=== PATIENT | female | born 1960 | race Caucasian/White ===

== ENCOUNTER 2024-02-21 02:13 | Day surgery (SDC) | payer MEDICARE, SELFPAY ==
[2024-02-03 14:42] VITALS: BMI 22.8
[2024-02-21 09:06] VITALS: BP 109/70; PULSE 95; RESP 20; TEMP 36.4; O2SAT 99; BMI 20.9
[2024-02-21] MEDS: LACTATED RINGERS 1,000 ML 150 ML IV CONT (09:16)
--- NOTE | 2024-02-21 09:42 | WPDANESEPPF ---
Anes - Initial Pre Proc Eval Procedure: Operation Date: 02/21/24 10:30 Proposed Procedures p Esophagogastroduodenoscopy & Colonoscopy - Walker Abrams MD Date/Time: 02/21/24 09:42 Surgeon: Walker Abrams MD Pre Op Diagnosis: IBS, Personal hx. colon polyps, LUQ Pain Patient Data Age: 64 Gender: F Height: 1.73 m Weight: 62.5 kg Last Vital Signs Temp 97.6 F 02/21/24 09:06 Pulse 95 02/21/24 09:06 Resp 20 02/21/24 09:06 BP 109/70 02/21/24 09:06 Pulse Ox 99 02/21/24 09:06 O2 Del Method Room Air 02/21/24 09:06 Allergies Allergy/AdvReac Type Severity Reaction Status Date / Time poison kvng extract Allergy Intermediate Rash Verified 02/21/24 09:05 cat dander Allergy Unknown Verified 02/21/24 09:05 dog dander Allergy Unknown Verified 02/21/24 09:05 Home Medications Medication Instructions Recorded Confirmed Type calcium 600 mg (as 1 tablet PO DAILY 02/03/24 02/21/24 History carbonate)-vitamin D3 20 mcg (800 unit) tablet (Caltrate with Vitamin D3) Patient hx anesthesia problems: none Family hx anesthesia problems: none Results Review: All pre-operative results and documents have been reviewed as part of the pre-operative evaluation. [facility] Past Medical History Medical History Allergies Depression Diverticulosis Encounter for breast augmentation Enteritis Gastric ulcer GERD (gastroesophageal reflux disease) HSV-2 infection IBS (irritable bowel syndrome) Marijuana smoker nightly Multiple gastric ulcers TIA (transient ischemic attack) finding on CT Tonsil and adenoid disease, chronic Uterus prolapse Vaginal anomaly Weight loss Surgical History Surgical History Basal cell carcinoma 2018 H/O endoscopy History of colostomy History of partial hysterectomy Prolapse of bladder Uterus prolapse Vaginal prolapse Family History Family History Mother Family history of liver disease Alcoholism Heart disease Father Alcoholism Depression Anxiety Diabetes mellitus Heart disease Cancer Grandparent Breast cancer Diabetes mellitus Heart disease Alzheimer disease Parkinson disease Social History Social History Social History: Caffeine-Decaf tea 12/24/23 Patient is very confident in filling out forms. Patient has not rcvd assistance in the past 12 months. Smoking status: Never smoker Second hand tobacco smoke exposure: No Alcohol intake: current Drinks per week: 2 Alcohol use details: 1-2 per week Substance use: current Substance use type: marijuana Other substance usage details: daily/nightly Do You Feel Safe in your Home?: Yes Lack of Transportation: No Lack of Food: Never True Current Housing: I Have Housing Concerned About Future Housing: No Difficulty Paying Gas/Electric Bills: No Difficulty Paying for Meds: No Currently Unemployed: No Education: High School Diploma/GED Difficulty w/ Childcare or Family Care: No Living arrangements: alone Occupation/Education: occupation 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 [employer] Gender identity (if verbalized by the patient): Female Spiritual care concerns: No Agree to blood products: Yes Anes - Eval Final PreProcedure Day of Procedure 02/21/24 09:42 Patient weight: normal Heart: regular rate and rhythm Lungs: clear to auscultation Airway: Mallampati scale class II Neurological: alert and oriented Last oral intake: >/= 8 hours ASA classification: II Emergent: no Anesthetic plan: proceed Anesthesia type and monitoring: general GIVS and standard monitoring Results Review: All pre-operative results and documents have been reviewed as part of the pre-operative evaluation. Informed Consent: The patient's anesthetic plan and its attendant risks and benefits were discussed with the patient/family/POA. Questions were solicited and answers provided to the satisfaction of the patient/family/POA.
--- NOTE | 2024-02-21 10:06 | PM.HPGS ---
History of Present Illness History of Present Illness Consent: Risks, benefits, and alternatives have been discussed and questions answered. Patient agrees to proceed with procedure. Chief complaint: IBS, Personal hx. colon polyps, LUQ Pain Narrative: Desi Reis is a 64 year old female with ibs, intermittent abdominal pain, 2019 had egd and colonoscopy- diverticulosis and small gastric ulcers, bx negative for h pylori. Previous h/o colon polyp. Review of Systems Review of Systems: All systems reviewed & are unremarkable except as noted in HPI and below PMFSH Past Medical History Medical History Allergies Depression Diverticulosis Encounter for breast augmentation Enteritis Gastric ulcer GERD (gastroesophageal reflux disease) HSV-2 infection IBS (irritable bowel syndrome) Marijuana smoker nightly Multiple gastric ulcers TIA (transient ischemic attack) finding on CT Tonsil and adenoid disease, chronic Uterus prolapse Vaginal anomaly Weight loss Surgical History Surgical History Basal cell carcinoma 2018 H/O endoscopy History of colostomy History of partial hysterectomy Prolapse of bladder Uterus prolapse Vaginal prolapse Family History Family History Mother Family history of liver disease Alcoholism Heart disease Father Alcoholism Depression Anxiety Diabetes mellitus Heart disease Cancer Grandparent Breast cancer Diabetes mellitus Heart disease Alzheimer disease Parkinson disease Social History Social History Social History: Caffeine-Decaf tea 12/24/23 Patient is very confident in filling out forms. Patient has not rcvd assistance in the past 12 months. Smoking status: Never smoker Second hand tobacco smoke exposure: No Alcohol intake: current Drinks per week: 2 Alcohol use details: 1-2 per week Substance use: current Substance use type: marijuana Other substance usage details: daily/nightly Do You Feel Safe in your Home?: Yes Lack of Transportation: No Lack of Food: Never True Current Housing: I Have Housing Concerned About Future Housing: No Difficulty Paying Gas/Electric Bills: No Difficulty Paying for Meds: No Currently Unemployed: No Education: High School Diploma/GED Difficulty w/ Childcare or Family Care: No Living arrangements: alone Occupation/Education: occupation 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 [employer] Gender identity (if verbalized by the patient): Female Spiritual care concerns: No Agree to blood products: Yes Meds Home Medications and Allergies Home Medications Medication Instructions Recorded Confirmed Type calcium 600 mg (as 1 tablet PO DAILY 02/03/24 02/21/24 History carbonate)-vitamin D3 20 mcg (800 unit) tablet (Caltrate with Vitamin D3) Allergies Allergy/AdvReac Type Severity Reaction Status Date / Time poison kvng extract Allergy Intermediate Rash Verified 02/21/24 09:05 cat dander Allergy Unknown Verified 02/21/24 09:05 dog dander Allergy Unknown Verified 02/21/24 09:05 Vital Signs Vital Signs - 24 hr 02/21/24 09:06 Temperature 97.6 F Pulse Rate 95 Respiratory Rate 20 Blood Pressure 109/70 Pulse Oximetry 99 Oxygen Delivery Room Air Exam Const: General: comfortable and no acute distress HENMT: Face/Nose/Sinus: Normal nares present Eyes: General: appearance normal, both eyes and all related structures Neck: Neck: no JVD Resp: Auscultation: clear to auscultation bilaterally Cardio: Rate: regular rate Rhythm: regular rhythm GI: Inspection: non-distended GI Palp: Yes Soft to palpation Skin: General skin exam: normal color Neuro: General: gait normal Speech: normal speech Extrem: General: normal to inspection Psych: Mental Status: mental status grossly normal Assessment and Plan Assessment and plan (1) LUQ pain: Code(s): R10.12 - Left upper quadrant pain Status: Acute Assessment and Plan: colonoscopy (2) Personal history of colonic polyps: Code(s): Z86.010 - Personal history of colon polyps Status: Acute (3) Gastric ulcer: Qualifiers: Gastric ulcer chronicity: acute Gastric ulcer complication status: without hemorrhage or perforation Qualified Code(s): K25.3 - Acute gastric ulcer without hemorrhage or perforation Code(s): K25.9 - Gastric ulcer, unspecified as acute or chronic, without hemorrhage or perforation Status: Acute Assessment and Plan: egd
--- NOTE | 2024-02-21 10:22 | SUR.OPER ---
EGD start 1014 end 1016, Colonoscopy start 1021
[2024-02-21 10:39] VITALS: BP 100/86; PULSE 90; RESP 16; O2SAT 100
[2024-02-21 10:49] VITALS: BP 95/65; PULSE 84; RESP 20; O2SAT 100
[2024-02-21 10:55] VITALS: BP 110/47; PULSE 79; RESP 22; O2SAT 100
== END 2024-02-21 11:07 | disposition home or self-care (01) ==
PROVIDERS: PCP Nurse Practitioner Family; Referring Provider Nurse Practitioner Family; Visit Provider Internal Medicine Gastroenterology
PROC: 0DJ08ZZ Inspection of Upper Intestinal Tract, Via Natural or Artificial Opening Endoscopic (ICD-10-PCS; CPT 43235; principal; 2024-02-21 10:30)
DX: K58.9 Irritable bowel syndrome, unspecified (principal); F32.A Depression, unspecified; K21.9 Gastro-esophageal reflux disease without esophagitis; Z98.890 Other specified postprocedural states; Z90.49 Acquired absence of other specified parts of digestive tract; Z85.828 Personal history of other malignant neoplasm of skin; Z87.11 Personal history of peptic ulcer disease; Z86.0100 Personal history of colon polyps, unspecified; Z87.42 Personal history of other diseases of the female genital tract; Z86.73 Personal history of transient ischemic attack (TIA), and cerebral infarction without residual deficits; Z80.3 Family history of malignant neoplasm of breast; Z82.49 Family history of ischemic heart disease and other diseases of the circulatory system
CPT/HCPCS: 43239; 45378; 88305; J2003; J2704; J7120

== ENCOUNTER 2024-05-26 10:00 | Outpatient (CLI) | payer MEDICARE, SELFPAY ==
--- NOTE | ~2024-05-26 | DEXA_ITS ---
Bone Density Report Name: REINA STUART Age: 64 Sex: Female Ethnicity: White Date of : 1960 Indication: postmenopausal; screening for osteoporosis; parental hip fracture; hysterectomy; Referring Provider: SARKIS MEJIA Study: Bone densitometry was performed. Exam Date: May 26, 2024 Accession number: [id number] Bone Density: Region BMD T-score Z-score Classification AP Spine(L1-L4) 0.851 -1.8 0.0 Osteopenia Femoral Neck (Left) 0.589 -2.3 -0.8 Osteopenia Total Hip (Left) 0.706 -1.9 -0.7 Osteopenia Femoral Neck (Right) 0.633 -1.9 -0.4 Osteopenia Total Hip (Right) 0.783 -1.3 -0.1 Osteopenia Total Hip Mean 0.745 -1.6 -0.4 Osteopenia World Health Organization criteria for BMD impression classify patients as: Normal (T-score at or above -1.0), Osteopenia (T-score between -1.0 and -2.5), or Osteoporosis (T-score at or below -2.5). 10-year Fracture Risk(1): Major Osteoporotic Fracture 20% Hip Fracture 3.8% Reported Risk Factors: [place] (), Neck BMD=0.589, BMI=21.3, parental fracture, smoking (1) FRAX(R) Version 3.08. Fracture probability calculated for an untreated patient. Fracture probability may be lower if the patient has received treatment. Clinical Information Provided by Patient: Parent has had a hip fracture Smokes Has used the following medications: Vitamin D, Calcium Has the following medical conditions: Hysterectomy Patient maximum height was 68.5 Menopause Age: 49 No regular weight bearing exercise Does not regularly consume dairy products Drinks caffeinated beverages Onset of menses at age 12 Number of children 1 Impression: The patient has low bone mass, based on the Left Femoral Neck T-score. The patient has an estimated ten-year risk of hip fracture of 3.8% and an estimated ten-year risk of major fracture of 20%, based on the WHO FRAX algorithm. The patient has risk factors, including: parental hip fracture, smoking. Discussion: BONE DENSITY IS LOW AT ONE OR MORE SKELETAL SITES. THE PATIENT'S BMD AND CLINICAL RISK FACTORS CONTRIBUTE TO THIS PATIENT'S HIGH RISK OF FRACTURE. This patient's lowest T-score is low at one or more skeletal sites. It meets the World Health Organization's (WHO) criteria for ?low bone mass? (T-score between -1.0 and -2.5). The patient's 10-year risk of hip fracture and 10 year risk of a major osteoporotic fracture as calculated by FRAX exceeds the threshold where pharmacological therapy is recommended by the National Osteoporosis Foundation (NOF). However, all treatment decisions require clinical judgment and consideration of individual patient factors, including patient preferences, comorbidities, previous drug use, risk factors not captured in the FRAX model (e.g., frailty, falls, vitamin D deficiency, increased bone turnover, interval significant decline in bone density) and possible under or overestimation of fracture risk by FRAX. The patient should follow a healthful lifestyle (good nutrition with adequate calcium and vitamin D, and appropriate weight-bearing exercise). Follow-Up: Consider a repeat BMD and Vertebral Fracture Assessment (VFA) exam in 2 years or sooner if medically necessary, to reassess this patient's status. Reported by: TOMAS on 05/26/2024 10:28:00 AM. Reviewed, dictated and finalized at location [facility]
== END 2024-05-26 10:01 | disposition home or self-care (01) ==
LOC: ANHIMG 10:02
PROVIDERS: PCP Nurse Practitioner Family; Visit Provider Nurse Practitioner Family
DX: M85.89 Other specified disorders of bone density and structure, multiple sites (principal); N95.8 Other specified menopausal and perimenopausal disorders
CPT/HCPCS: 77080

== ENCOUNTER 2024-09-19 08:08 | Outpatient (CLI) | payer MEDICARE, SELFPAY ==
--- NOTE | ~2024-09-19 | CT_ITS ---
EXAMINATION: CT sinus wo con DATE: 09/19/2024 08:32 INDICATION: Pressure of the eustachian tubes. TECHNIQUE: Computed tomography (CT) of the paranasal sinuses was performed without intravenous contra st. The dose-length product was 332.63 mGy-cm. Automated exposure control and iterative reconstructio n technique were employed. COMPARISON: None FINDINGS: There is no significant mucosal thickening. No air-fluid levels. No mucoperiosteal reaction . Leftward nasal septal deviation. Ostiomeatal units are patent. Mastoids are pneumatized. IMPRESSION: 1. No significant sinus disease. Reviewed, dictated and finalized at location A.
--- OUTSIDE RECORDS SUMMARY | 2024-09-19 08:11 | XMS_ITS | Clinical Summary ---
Author Organization [facility] Address [address] [place] [address] Care Team Providers Care Senior Resident Care Director Name Role Phone Rigoberto Pierre MD Primary Care Provider [phone] Source Comments [facility],non-owned Affiliates and Associated Physician Practices is amultiple site organization consisting of ambulatory clinics and hospital sitesin [place], [place], [place] and [place]. This disclosure is being madepursuant to the Care Everywhere program and may not contain all information available regarding this patient. Last updated 18.[facility] Allergies No known active allergies Medications * Be aware that medications may not be up to date on this document. Alwaysverify current medications with the patient. ibuprofen (MOTRIN) 600 MG tablet Take 1 Tab by mouth every 6 hours as needed for Pain. 30 0 10/06/2009 Active multivitamin daily (THERAGRAN) tablet Take 1 Tab by mouth daily with food. Active calcium-vitamin D (OS-CONOR 500 + D) 500-200 MG-UNIT tablet Take 1 Tab by mouth daily. Active oxycodone-acetam inophen (PERCOCET) 5-325 MG tablet Take 1-2 Tabs by mouth every 6 hours as needed for Pain. 30 Tab 0 06/07/2010 Active docusate sodium (COLACE) 100 MG capsule Take 1 Cap by mouth 2 times daily. 60 Cap 3 06/07/2010 Active Active Problems No known active problems Resolved Problems Problem Noted Date Diagnosed Date Resolved Date Mixed incontinence 10/06/2009 0 Overview (10/06/2009): MIXED INCONTINENCE Preoperative examination 10/05/2009 Family History Medical History Relation Name Comments Cancer Maternal Grandmother Diabetes Other Relation Name Status Comments Maternal Grandmother Other Social History Tobacco Use Types Packs/Day Years Used Date Smoking Tobacco: Former Cigarettes Alcohol Use Standard Drinks/Week Comments Yes 0 (1 standard drink = 0.6 oz pur e alcohol) OCCASIONAL Comments No Sex and Gender Information Value Date Recorded Sex Assigned at Not on file Legal Sex Female 8:45 AM TRADING ANALYST Gender Identity Not on file Sexual Orientation Not on file Last Filed Vital Signs Vital Sign Reading Time Taken Comments Blood Pressure 116/79 06/07/2010 4:05 PM TRADING ANALYST Pulse 74 06/07/2010 4:05 PM TRADING ANALYST Temperature 36.2 C (97.1 F) 06/07/2010 12:15 PM TRADING ANALYST Respiratory Rate 16 06/07/2010 4:05 PM TRADING ANALYST Oxygen Saturation 99% 06/07/2010 4:05 PM TRADING ANALYST Inhaled Oxygen Concentration - - Weight 70.8 kg (156 lb) 06/07/2010 7:00 AM TRADING ANALYST Height 172.7 cm (5' 8 ) 06/07/2010 7:00 AM TRADING ANALYST Body Mass Index 23.72 06/07/2010 7:00 AM TRADING ANALYST Plan of Treatment Health Maintenance Due Date Last Done Comments BONE DENSITY TESTING 1960 COLOGUARD (AGES 45-75) - COL ON CA SCREENING 1960 COLON MONITORING 1960 COLONOSCOPY - COLON CA SCREENING 1959 CT COLONOGRAPHY - COLON CA SCREENING 1960 Colorectal Cancer Screening 1960 FIT - COLON CA SCREENING 1960 FLEX SIG - COLON CA SCREENING 1960 LIPID TESTING 1960 MAMMOGRAM 1960 MEDICARE AWV 12 MONTHS 1960 HIV SCREENING 1974 HEPATITIS C SCREENING 01/05/1977 DTAP/TDAP/TD VACCINES (1 - Tdap) 1978 PNEUMOCOCCAL VACCINE 50+ (1 of 1 - PCV) 2009 ZOSTER VACCINE (1 of 2) 2009 PAP SMEAR 08/23/2012 08/23/2009 COVID-19 VACCINE (2023-2 5 season) 2024 DEPRESSION SCREENING 05/13/2024 INFLUENZA VACCINE (Season Ended) 2025 Respiratory Syncytial Virus (RSV) Vaccine Pt: or over 60 yrs (1 - 1-dose 75+ series) 2034 HEPATITIS B VACCINE Aged Out No longe r eligible based on patient's age to complete this topic HIB VACCINE Aged Out No longer eligi ble based on patient's age to complete this topic HPV VACCINE Aged Out No longer eligi ble based on patient's age to complete this topic MENINGOCOCCAL (Group B) VACC INE SHARED DECISION-MAKING Aged Out No longer eligibl e based on patient's age to complete this topic MENINGOCOCCAL GROUPS A/C/Y/W VACCINE Aged Out No longer eligible b ased on patient's age to complete this topic Procedures Procedure Name Priority Date/Time Associated Diagnosis Comments PAP THINPREP Routine 08/23/2009 from Last 3 Months or Most Recently Relevant to Health Maintenance Results * PAP THINPREP (08/23/2009) Cervical swab (specimen) PART OF UTERINE CERVIX / Unknown 08/23/2009 Narrative [facility] - 09/13/2009 4:48 PM CDT Preferred Lab:->OTHER EXTERNAL LAB Rigoberto Iqbal MD LAB - PATHOLOGY/CYTOLOGY ORDERA BLES Final Result Performing Organization Address [facility]/State/[facility] Co de Phone Number [facility] [address] from Last 3 Months or Most Recently Relevant to Health Maintenance Insurance [facility] [employer] MEDICARE MEDICARE SUPPLEMENT PAYOR GENERIC SELF PAY NO INSURANCE Member Subscriber Plan / Payer (Ef fective for All Dates) Name:Desi Stuart Member ID:Not on file Relation to Subscriber:Not on file Name:DESI STUART Subscriber ID:Not on file (Home) Address: [address] [place] [address] [place] [address] Payer ID:Not on file Group ID:Not on file Type:Self Pay Address: [place], [place] Advance Directives * Full Code (Latest Code Status on File) Date Activated Date Inactivated Comments 10/05/2009 2:43 PM 10/07/2009 2:03 AM Care Teams Senior Resident Care Director Relationship Specialty Start Date End Date Rigoberto Pierre MD [address] [place] [id number] PCP - General 06/03/19
--- OUTSIDE RECORDS SUMMARY | 2024-09-19 08:11 | XMS_ITS | Clinical Summary ---
Author Organization [facility] Address [address] [place] [address] Care Team Providers Care Spare Hand Carding Name Role Phone Samantha Mejia AUTOMOTIVE MANUFACTURER Primary Care Provider Allergies Active Allergy Reactions Criticality Noted Date Comments Poison Zunilda Extract Rash Low 03/19/2013 Medications omeprazole (PRILOSEC) 20 MG capsule Take 1 capsule (20 mg total) by mouth daily. 03/03/2024 Active calcium carb-cholecalci ferol (CALTRATE+D) 600-10 MG-MCG Tab tablet 1 tablet. 5x/week Active Active Problems Problem Noted Date Diagnosed Date Heart palpitations 03/20/2024 Assessment & Plan (03/20/2024 3:01 PM INSTRUCTIONAL TECHNOLOGY TEACHER): She is having minimal symptoms of palpitations, no monitor needed at this time and no pharmacologic therapy needed at this time. Mitral valve prolapse 03/20/2024 Assessment & Plan (03/20/2024 3:01 PM INSTRUCTIONAL TECHNOLOGY TEACHER): Will repeat echo to assess mitral valve prolapse. Raynaud's disease without gangrene 03/20/2024 Assessment & Plan (03/20/2024 3:02 PM INSTRUCTIONAL TECHNOLOGY TEACHER): She showed me pictures of her hands and feet with discoloration secondary to temperature changes. I suspect that she has Raynaud's disease. No medication at this time. Rabies exposure 12/24/2018 Encounters Date Type Department Care Team Description 09/02/2024 7:40 AM CDT - 09/02/2024 11:59 PM CDT Hospital Encounter [facility] Ultrasound [address] [place] [address] Samantha Mejia, FER Discharge Disposition: Home or Self Care (Routine Discharge) 09/02/2024 Travel from Last 3 Months Immunizations Immunization Administration Dates Next Due Fluzone 6 Months+ Quad (0.5 mL Prefilled Syringe) 01/19/2020 Influenza (Afluria - Preserv ative Free) 02/10/2019 Influenza Adult (Generic) 12/23/2018,03/16/2018 Rabies (Rabavert) 01/05/2019, 9,12/25/2018,2018 Family History Medical History Relation Comments Alcohol Abuse Father Cancer Father Prostate Depression Father Manic depressive disorder Drug Abuse Father Mental Health Father Breast Cancer Maternal Grandmother 60'S Cancer Maternal Grandmother Breast Heart Attack Maternal Grandmother Heart Disease Maternal Grandmother Diabetes Maternal Uncle Alcohol Abuse Mother Heart Disease Mother Relation Status Comments Father Maternal Grandmother Maternal Uncle Mother Social History Tobacco Use Types Packs/Day Years Used Date Smoking Tobacco: Former Cigarettes Q uit: 05/13/1980 Smokeless Tobacco: Never Tobacco Cessation:Counseling Given: Not Answered Alcohol Use Standard Drinks/Week Comments Yes 2.7 (1 standard drink = 0.6 oz p ure alcohol) A beer or kole AUDIT-C Answer Date Recorded Frequency of Alcohol Consumption 2-3 times a wee k 01/15/2020 Average Number of Drinks Not on file 020 Frequency of Binge Drinking Not on file 08/2019 Comments No Sex and Gender Information Value Date Recorded Sex Assigned at Not on file Legal Sex Female 8:24 PM CDT Gender Identity Not on file Sexual Orientation Not on file Last Filed Vital Signs Vital Sign Reading Time Taken Comments Blood Pressure 100/60 03/20/2024 1:41 PM INSTRUCTIONAL TECHNOLOGY TEACHER Pulse 97 03/20/2024 1:41 PM INSTRUCTIONAL TECHNOLOGY TEACHER Temperature 36.7 C (98 F) 12/31/2018 11:18 AM CDT Respiratory Rate 18 12/31/2018 1:11 PM CDT Oxygen Saturation 98% 03/20/2024 1:41 PM INSTRUCTIONAL TECHNOLOGY TEACHER Inhaled Oxygen Concentration - - Weight 63.5 kg (140 lb) 03/20/2024 1:41 PM INSTRUCTIONAL TECHNOLOGY TEACHER Height 172.7 cm (5' 8 ) 03/20/2024 1:41 PM INSTRUCTIONAL TECHNOLOGY TEACHER Body Mass Index 21.29 03/20/2024 1:41 PM INSTRUCTIONAL TECHNOLOGY TEACHER Plan of Treatment Upcoming Encounters Date Type Department Care Team (Late st Contact Info) Description 03/26/2025 10:00 AM INSTRUCTIONAL TECHNOLOGY TEACHER [facility] [address] [place] [address] Sofi Martínez PA [address] [facility], [address] [place] [address] Health Maintenance Due Date Last Done Comments Colorectal Cancer Screening Colonoscopy (10 Years) 1959 Hepatitis C 1977 DTaP, Tdap and Td Vaccines ( 1 - Tdap) 1978 Pneumococcal Vaccine: 50+ Years (1 of 2 - PCV) 1978 Zoster Vaccines (1 of 2) 2009 RSV Immunization or 60+ Years (1 - Risk 60-74 years 1-dose series) 2019 Dexa Scan (General) 01/11/2024 COVID-19 Vaccine (1 - 2023-2 5 season) 2024 PHQ-2 (Physician [place]) 05/13/2024 Mammogram Screening 07/24/2025 07/25/2023, 04/21/2021 Meningococcal B Vaccine Aged Out No l onger eligible based on patient's age to complete this topic Meningococcal Vaccine Aged Out No bigg desi eligible based on patient's age to complete this topic RSV Immunizations Under 20 Months Aged Out No longer eligible b ased on patient's age to complete this topic Procedures Procedure Name Priority Date/Time Associated Diagnosis Comments US SOFT TISS HEAD OR NECK Routine 09/02/2024 8:39 AM CDT Localized swelling, mass and lump, neck MG SCREENING IMPLANT W KEND[place] MINNIE DIGI Routine 07/25/2023 9:28 AM CDT Screening mammogram, encounter for from Last 3 Months or Most Recently Relevant to Health Maintenance Results * US SOFT TISS HEAD OR NECK (09/02/2024 8:39 AM CDT) Anatomical Region Laterality Modality Head, Neck Ultrasound 09/02/2024 8:46 AM CDT Impressions 09/02/2024 8:48 AM CDT IMPRESSION: Normal morphology lymph nodes at the areas of swelling of the left neck. No suspicious findings. Ordered By: SAMANTHA MEJIA Interpreted By: Main Gardner MD, 09/02/2024 8:46 AM Narrative 09/02/2024 8:48 AM CDT [facility] [address] [place] [address] US SOFT TISS HEAD OR NECK INDICATION: LOCALIZED SWELLING, MASS AND LUMP, NECK TECHNIQUE: Limited grayscale and color Doppler ultrasound performed of the area of concern left neck region. COMPARISON: None FINDINGS: In the area of swelling left neck region, normal morphology cervical chain lymph nodes are identified. For reference measuring 6 mm adjacent to the parotid gland. Normal reniform shape and echogenic fatty hilum is present. A second lymph node in the left submandibular region measures 5 mm short axis also with normal reniform shape and echogenic fatty hilum. A third lymph node is seen measuring up to 3 mm short axis with suggestion of fatty hilum as seen on image 24. No suspicious lymphadenopathy or solid mass identified. Procedure Note Main Gardner MD - 09/02/2024 [facility] [address] [place] [address] US SOFT TISS HEAD OR NECK INDICATION: LOCALIZED SWELLING, MASS AND LUMP, NECK TECHNIQUE: Limited grayscale and color Doppler ultrasound performed of thearea of concern left neck region. COMPARISON: None FINDINGS: In the area of swelling left neck region, normal morphology cervical chainlymph nodes are identified. For reference measuring 6 mm adjacent to theparotid gland. Normal reniform shape and echogenic fatty hilum is present.A second lymph node in the left submandibular region measures 5 mm shortaxis also with normal reniform shape and echogenic fatty hilum. A thirdlymph node is seen measuring up to 3 mm short axis with suggestion offatty hilum as seen on image 24. No suspicious lymphadenopathy or solidmass identified. IMPRESSION: Normal morphology lymph nodes at the areas of swelling of the left neck.No suspicious findings. Ordered By: SAMANTHA MEJIA Interpreted By: Main Gardner MD, 09/02/2024 8:46 AM Samantha Mejia AUTOMOTIVE MANUFACTURER ULTRASOUND Final Resul t * MG SCREENING IMPLANT W [place] MINNIE DIGI (07/25/2023 9:28 AM CDT) Anatomical Region Laterality Modality Breast Bilateral Mammography 07/25/2023 2:40 PM CDT Narrative 07/25/2023 2:44 PM CDT EXAMINATION: Digital bilateral screening mammogram with 3-D tomosynthesis EXAM DATE/TIME: 07/25/2023 8:33 AM REASON FOR EXAM: Screening Mammogram Maternal grandmother with breast carcinoma in her 70s. COMPARISON: 07/16/2017.. 04/21/2021 Technique: Digital screening mammography of both breasts was performed in addition to 3-D Tomosynthesis technique. This study was read with the assistance of a computer-aided detection system. Tissue density: There are scattered areas of fibroglandular density. Findings: Bilateral breast prostheses are intact. Stable slightly irregular shape to the right breast prosthesis. There is no new focal asymmetry, dominant mass lesion, area of skin thickening, or cluster of suspicious appearing calcifications in either breast to suggest malignancy. ===== IMPRESSION: ===== 1. Stable mammographic appearance with no new findings to suggest malignancy in either breast. Assessment: ACR BI-RADS 2 - BENIGN FINDING(S) Recommendation: 1:Routine Screening Bilateral Comments: Ordered By: SAMANTHA MEJIA Interpreted By: Braden Bhandari, 07/25/2023 2:40 PM Samantha Mejia AUTOMOTIVE MANUFACTURER MAMMO Final Resul t from Last 3 Months or Most Recently Relevant to Health Maintenance Insurance MEDICARE GENERIC - COMMERCIAL Advance Directives Documents on File Type Date Recorded Patient Restrooms Or Lounges Maid Expl anation Legal Documents 12/25/2018 Advance Directives and Living Will 08/06/2013 12:00 AM ADVANCED DIRECTIVES Advance Directives and Living Will 10/23/2012 12:00 AM ADVANCED DIRECTIVES Care Teams Spare Hand Carding Relationship Specialty Start Date End Date Samantha Mejia FNP [address] [facility] [address] [place] [address] PCP - General Nurse Practitioner Family 12/23/23
--- OUTSIDE RECORDS SUMMARY | 2024-09-19 08:11 | XMS_ITS | Encounter Summary ---
Author Organization [facility] Address [address] [facility] [place] [address] Care Team Providers Care Services Rep Name Role Phone Rigoberto Pierre MD Primary Care Provider [phone] Encounter Details Date Type Department Care Team (Late st Contact Info) Description 08/23/2021 Lab Requisition [facility] [address] [facility] [place] [address] Matias Ortega MD [address] [place] [address] Social History Tobacco Use Types Packs/Day Years Used Date Smoking Tobacco: Former Cigarettes Alcohol Use Standard Drinks/Week Comments Yes 0 (1 standard drink = 0.6 oz pur e alcohol) OCCASIONAL Comments No Sex and Gender Information Value Date Recorded Sex Assigned at Not on file Legal Sex Female 8:45 AM BREAKER UNIT ASSEMBLER Gender Identity Not on file Sexual Orientation Not on file documented as of this encounter Plan of Treatment Not on file documented as of this encounter Procedures Procedure Name Priority Date/Time Associated Diagnosis Comments DERMATOPATHOLOGY Routine 08/22/2021 12:0 0 AM CDT documented in this encounter Results * DERMATOPATHOLOGY (08/22/2021 12:00 AM CDT) Case Report Dermatopathology Report Case: [id number] Authorizing Provider: Matias Ortega MD Collected: 08/22/2021 12:00 AM Ordering Location: [facility] Received: 08/23/2021 04:48 PM Pathologist: Linnea Duarte MD Specimen: Skin, right chest 3:25 PM [facility] D[facility] Final Diagnosis Specimen A. SKIN, right chest: SQUAMOUS PROLIFERATION (D48.5) (see microscopic description and comment) 2 3:25 PM T DERMATOPATHOLOGY LABORATORY Clinical History ISK vs. AK vs. BCCA vs. SCCA Path# [id number] 2 3:25 PM T DERMATOPATHOLOGY LABORATORY Gross Description Specimen A: Received is one formalin filled container labeled with the patient's name and designated right chest. The specimen consists of a shave biopsy measuring [id number]. Jar 0. 3:25 PM [facility] DERMATOPATHOLOGY [facility]ORAT[facility] Microscopic Description Specimen A. SKIN, right chest: Crush artifact and tissue fragmentation are present. Sections show maturational disarray and nuclear pleomorphism of keratinocytes extending throughout the full thickness of the specimen. There is focal parakeratosis. This lesion is present at the margin of the specimen. The lesion is inflamed. Additional deeper sections were obtained and reviewed. COMMENT: The histological differential diagnosis includes an irritated and inflamed benign keratosis, an actinic keratosis, and less likely squamous cell carcinoma. 2 3:25 PM [facility] D[facility]OR[facility] Disclaimer An external and internal positive and negative controls are appropriate for the histochemical, immunohistochemical and immunofluorescence stain(s) in this case (if any), except where stated explicitly. The performance characteristics of the stain(s) cited in this report were developed and its performance characteristic determined by the Dermatopathology Laboratory at [facility], directed by Dr. Tennille Fitzgerald. These tests need not be, and therefore are not, approved by the [place] Food and Drug Administration. The tests are used for clinical purposes. Billing Codes Specimen Charges Stain Charges 78506 1 2 3:25 PM CDT DERMATOPATHOLOGY LABORATORY Embedded Images 2 3:25 PM T DERMATOPATHOLOGY LABORATORY Pathology/Cytolog y TISSUE SPECIMEN FROM SKIN / Unknown 08/22/2021 08/23/2021 4:48 PM CDT us Matias Ortega MD LAB - PATHOLOGY/CYTOLOGY ORDER KING Final Result DERMATOPATHOLOGY LABORATORY [facility] - Department of Dermatology [facility] Specialized Medicine [address] [place] [address], [address] [phone] documented in this encounter Visit Diagnoses Not on filedocumented in this encounter Care Teams Services Rep Relationship Specialty Start Date End Date Rigoberto Pierre MD [address] [place] [address] PCP - General 06/03/19 documented as of this encounter
--- OUTSIDE RECORDS SUMMARY | 2024-09-19 08:11 | XMS_ITS | Encounter Summary ---
Author Organization [facility] Address [facility] [place] [address] Care Team Providers Care Special Needs Tutor Name Role Phone Rigoberto Pierre MD Primary Care Provider [phone] Natalia Lowry DO Primary Care Provider [phone] Samantha Ramirez Primary Care Provider [phone] Encounter Details Date Type Department Care Team (Late Contact Info) Description 12/24/2018 Therapy Plan [facility] Day [facility] [address] [place] [address] Russell Heredia MD [address] [place] [address] Social History Tobacco Use Types Packs/Day Years Used Date Smoking Tobacco: Former Cigarettes Q uit: 12/20/1974 Smokeless Tobacco: Never Alcohol Use Standard Drinks/Week Comments Yes 0 (1 standard drink = 0.6 oz pur e alcohol) 3-4 times a week Comments No Sex and Gender Information Value Date Recorded Sex Assigned at Not on file Legal Sex Female 8:24 PM CDT Gender Identity Not on file Sexual Orientation Not on file documented as of this encounter Plan of Treatment Upcoming Encounters Date Type Department Care Team (Late Contact Info) Description 03/26/2025 10:00 AM CONTRACT SPECIALIST [facility] [address] [place] [phone] Sofi Martínez PA [address] [place] [address], [address] [place] [address] documented as of this encounter Visit Diagnoses Not on filedocumented in this encounter Care Teams Special Needs Tutor Relationship Specialty Start Date End Date Rigoberto Pierre MD [address] [place] [address] PCP - General FAMILY PRACTICE 12/20/18 03/21/21 Natalia Lowry DO [address] [place] [address] PCP - General FAMILY PRACTICE 03/22/21 12/22/23 Samantha Ramirez FNP [address] [place] [address] PCP - General Nurse Practitioner Family 12/23/23 documented as of this encounter
--- OUTSIDE RECORDS SUMMARY | 2024-09-19 08:11 | XMS_ITS | Encounter Summary ---
Author Organization [facility] Address [facility] [place] [address] Care Team Providers Care Grants Director Name Role Phone Rigoberto Pierre MD Primary Care Provider [phone] Natalia Lowry DO Primary Care Provider [phone] Samantha Ramirez Primary Care Provider [phone] Encounter Details Date Type Department Care Team (Late Contact Info) Description 12/25/2018 Hospital Orders Only [facility] Day [facility] [address] [place] [address] Jammie Greco MD Social History Tobacco Use Types Packs/Day Years [...] st Contact Info) Description 03/26/2025 10:00 AM RAIL WASHER Office Visit [facility] [address] [place] [address] Sofi Martínez PA [address] [facility], [address] [place] [address] documented as of this encounter Visit Diagnoses Not on filedocumented in this encounter Care Teams Grants Director Relationship Specialty Start Date End Date Rgioberto Pierre MD [address] [place] [address] PCP - General FAMILY PRACTICE 12/20/18 03/21/21 Natalia Lowry DO [address] [place] [address] PCP - General FAMILY PRACTICE 03/22/21 12/22/23 Samantha Ramirez, FER [address] [place] [address] PCP - General Nurse Practitioner Family 12/23/23 documented as of this encounter
--- OUTSIDE RECORDS SUMMARY | 2024-09-19 08:11 | XMS_ITS | Encounter Summary ---
Author Organization [facility] Address [address] [place] [address] Care Team Providers Care Tinware Lithograph Press Operator Name Role Phone Samantha Ramirez SUPERVISOR PRE WAVE Primary Care Provider [phone] Encounter Details Date Type Department Care Team (Late st Contact Info) Description 02/27/2024 Abstract [facility], [place] [address] [place] [address] Blanca Lozoya MA Social History Tobacco Use Types Packs/Day Years Used Date Smoking Tobacco: Former Cigarettes Q uit: 1975 Smokeless Tobacco: Never Alcohol Use Standard Drinks/Week Comments Not Currently 0 (1 standard drink = 0.6 oz pur e alcohol) AUDIT-C Answer Date Recorded Frequency of Alcohol [...] st Contact Info) Description 03/26/2025 10:00 AM HOUSING COUNSELOR Office Visit [facility] [address] [place] [address] Sofi Martínez PA [address] [facility], [address] [place] [address] documented as of this encounter Procedures Procedure Name Priority Date/Time Associated Diagnosis Comments CBC (OUTSIDE LAB) Routine 12/31/2023 BASIC METABOLIC PANEL Routine 12/31/2023 LIPID PANEL Routine 12/31/2023 VITAMIN D, 25 OH Routine 12/31/2023 documented in this encounter Results * VITAMIN D, 25 OH (12/31/2023) VITAMIN D 25 HYDROXY S/P/B 29 12/31/2023 us Default History Genericprovider LABORATORY Final Result * LIPID PANEL (12/31/2023) CHOLESTEROL 208 HDL 55 TRIGLYCERIDES 150 NON HDL CHOLESTEROL 153 LDL (CALCULATED) 127 12/31/2023 Default History Genericprovider LABORATORY Edited Result - Final * BASIC METABOLIC PANEL (12/31/2023) SODIUM S/P/B 141 POTASSIUM S/P/B 4.0 CO2 26 CHLORIDE S/P/B 105 GLUCOSE 105 mg/dL CALCIUM S/P/B 9.8 BUN 8 CREATININE S/P/B 0.71 0.5 - 1.0 GFR ESTIMATE 95 12/31/2023 us Default History Genericprovider LABORATORY Final Result * CBC (OUTSIDE LAB) (12/31/2023) WBC 5.3 HGB 15.2 HCT 45.8 PLT 243 12/31/2023 Default History Genericprovider LAB-OUTSIDE/ABST RACTED Final Result documented in this encounter Visit Diagnoses Not on filedocumented in this encounter Care Teams Tinware Lithograph Press Operator Relationship Specialty Start Date End Date Samantha Ramirez FNP [facility] [place] [address] PCP - General Nurse Practitioner Family 12/23/23 documented as of this encounter
== END 2024-09-19 08:09 | disposition home or self-care (01) ==
PROVIDERS: PCP Nurse Practitioner Family; Visit Provider Otolaryngology
DX: J32.2 Chronic ethmoidal sinusitis (principal); K21.9 Gastro-esophageal reflux disease without esophagitis
CPT/HCPCS: 70486

== ENCOUNTER 2024-12-17 16:29 | Emergency (ER) | payer MEDICARE, SELFPAY ==
--- NOTE | 2024-12-17 16:31 | ED.URI ---
HPI - URI/Sore Throat General Chief Complaint: Upper Respiratory Infection Stated Complaint: Sore Throat Time Seen by Provider: 12/17/24 16:31 Source: patient Mode of arrival: ambulatory Limitations: no limitations History of Present Illness HPI Narrative: Patient is a 64-year-old female presents with sore throat and itchy ears for 3 days. Patient was exposed to strep at work. Denies any fever, chills, nausea, vomiting, diarrhea. Patient has not taken anything for symptoms other than her daily Claritin Related Data Home Medications ?Medication ?Instructions ?Recorded ?Confirmed ?Last Taken ?Type calcium 600 mg (as 1 tablet PO DAILY 02/03/24 11/20/24 02/19/24 History carbonate)-vitamin D3 20 mcg (800 unit) tablet (Caltrate with Vitamin D3) multivitamin 1 tablet PO DAILY 09/16/24 11/20/24 Unknown History loratadine .ROUTE 12/17/24 Unknown History Allergies Allergy/AdvReac Type Severity Reaction Status Date / Time poison kvng extract Allergy Intermediate Rash Verified 12/17/24 16:58 cat dander Allergy Unknown Verified 12/17/24 16:58 dog dander Allergy Unknown Verified 12/17/24 16:58 Review of Systems Review of Systems: All systems reviewed & are unremarkable except as noted in HPI and below Constitutional: Constitutional: Denies chills, Denies fatigue, Denies fever(s), Denies headache(s), Denies malaise and Denies weakness Eyes: Eyes: Denies blurry vision, Denies itchy eyes and Denies loss of vision ENT: Reports otalgia (itching), Denies headache(s), Denies sinus pain and Reports sore throat Cardiovascular: Cardiovascular: Denies chest pain, Denies irregular heart rhythm and Denies dyspnea Respiratory: Respiratory: Denies cough and Denies dyspnea Gastrointestinal: Gastrointestinal: Denies abdominal pain, Denies diarrhea, Denies nausea and Denies vomiting Musculoskeletal: Musculoskeletal: Denies back pain, Denies myalgias and Denies arthralgias Integumentary/Breasts: Skin/Breast: Denies pruritus and Denies rash Neurologic: Denies headache(s), Denies loss of vision and Denies weakness Psychiatric: Psychiatric: Reports no additional psychiatric complaints Endocrine: Endocrine: Denies fatigue Allergic/Immunologic: Allergic/Immunologic: Denies itchy eyes PMFSH Past Medical History Medical History Allergies Diverticulosis IBS (irritable bowel syndrome) Multiple gastric ulcers HSV-2 infection GERD (gastroesophageal reflux disease) Gastric ulcer Marijuana smoker nightly TIA (transient ischemic attack) finding on CT Depression Weight loss Enteritis Vaginal anomaly Uterus prolapse Encounter for breast augmentation Tonsil and adenoid disease, chronic Surgical History Surgical History Vaginal prolapse Uterus prolapse Prolapse of bladder History of colostomy H/O endoscopy Basal cell carcinoma 2018 History of partial hysterectomy Family History Family History Mother Family history of liver disease Alcoholism Heart disease Father Alcoholism Depression Anxiety Diabetes mellitus Heart disease Cancer Grandparent Breast cancer Diabetes mellitus Heart disease Alzheimer disease Parkinson disease Social History Social History Social History: Caffeine-Decaf tea 11/16/24 very confident with medical forms Smoking status: Never smoker Second hand tobacco smoke exposure: No Alcohol intake: current Drinks per week: 2 Alcohol use details: 1-2 per week Substance use: current Substance use type: marijuana Other substance usage details: daily/nightly Do You Feel Safe in your Home?: Yes Lack of Transportation: No Lack of Food: Never True Current Housing: I Have Housing Concerned About Future Housing: No Difficulty Paying Gas/Electric Bills: No Difficulty Paying for Meds: No Currently Unemployed: No Education: Decline to Answer Difficulty w/ Childcare or Family Care: No Living arrangements: alone Occupation/Education: occupation 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 There is no relevant family history pertinent to the presenting complaint. Exam Const: General: cooperative, healthy appearing, comfortable, no acute distress and well nourished Nutritional Appearance: well nourished Orientation/consciousness: patient oriented x3 Limitations: no limitations HENMT: Head: normal to inspection, normocephalic and atraumatic Ears: hearing grossly normal bilaterally, external ears normal, TM's normal bilaterally, EAC's normal and no periauricular adenopathy Face/Nose/Sinus: Normal external nose present, Abnormal mucous membranes and turbinates present erythematous bilateral and diffuse, normal facial exam, sinuses nontender and face symmetric Face and sinus: normal facial exam, sinuses nontender and face symmetric Mouth: Yes Normal oral and palatal mucosa present, Yes lip normal, Yes tongue normal, Yes Normal salivary glands and ducts present, Yes oropharynx normal and Yes moist mucous membranes Teeth and gingiva: dentition normal Throat: posterior oropharynx normal, tonsils normal, uvula midline and postnasal drainage Eyes: General: appearance normal, both eyes and all related structures Alignment and Position: alignment normal and position normal Periorbital: periorbital findings normal Eyelids: eyelids normal Pupils: Equal, round and reactive pupils present Neck: Neck: normal visual inspection, full ROM, no lymphadenopathy and supple Chest: Chest palpation & inspection: normal inspection of the chest and normal palpation of entire chest wall Resp: Effort & Inspection: normal respiratory effort and able to speak in complete sentences Auscultation: clear to auscultation bilaterally, no crackles, no rales, no rhonchi and no wheezes Cardio: Rate: regular rate Rhythm: regular rhythm Heart sounds: S1 normal heart sound present and S2 normal heart sound present GI: Inspection: normal to inspection Skin: General skin exam: normal color and no rashes or lesions noted Neuro: General: patient oriented x3 and moves all extremities Cranial nerves: Yes Equal, round and reactive pupils present Speech: normal speech Gait exam (Neuro): Normal gait present Extrem: General: normal to inspection, full ROM and no edema Psych: Appearance: grossly normal and well kempt Mental Status: mental status grossly normal Speech and movement: Normal speech and movement present Affect: normal affect Attitude: cooperative Thought process: Normal thought process present Course Course Emergency Course: Discharge instructions reviewed with patient, as well as provided in writing per nursing staff. The instructions also include specific and strict return/GO TO THE ER as well as f/u information. All questions have been answered, and the patient deny any further questions with discharge and discharge plan. Portions of this record may have been created with voice recognition software Level of Care: Express Care Visit Vital Signs Vital signs: Vital Signs Temperature 36.7 C 12/17/24 16:43 Pulse Rate 88 12/17/24 16:43 Respiratory Rate 16 12/17/24 16:43 Blood Pressure 124/69 12/17/24 16:43 Pulse Oximetry 99 12/17/24 16:43 Oxygen Delivery Room Air 12/17/24 16:43 Temperature 36.7 C 12/17/24 16:43 Pulse Rate 88 12/17/24 16:43 Respiratory Rate 16 12/17/24 16:43 Blood Pressure 124/69 12/17/24 16:43 Pulse Oximetry 99 12/17/24 16:43 Oxygen Delivery Room Air 12/17/24 16:43 Reviewed MDM - URI/Sore Throat MDM Narrative Medical decision making narrative: Pt well hydrated appearing, in no respiratory distress, hemodynamically stable. Recommend supportive care. The patient is stable at time of discharge the clinical impression was discussed and the patient was given the opportunity to ask questions, which were addressed as completely as possible given the information available at present. Anticipatory guidance and return to care precautions were discussed and the importance of primary care follow-up was stressed and encouraged. The patient voiced understanding of the plan, indications to return, and the need for follow-up. Exam findings show no acute concerns or changes Patient is appropriate for outpatient treatment and follow-up. Differential diagnosis considered: Best virus, strep pharyngitis, allergic rhinitis, upper respiratory tract infection, sinusitis, rhinosinusitis, nasopharyngitis. viral pharyngitis, otitis media, otitis externa, otitis effusion, foreign body, cerumen impaction, viral syndrome, and influenza.? Medical Records Attestation: I reviewed the patient's medical records. Lab Data Attestation: I reviewed the patient's lab results. Labs: Lab Results 12/17/24 Range/Units 16:39 POC Grp A Strep Screen Negative (Negative) Discharge Plan Discharge Clinical Impression: Upper respiratory infection Qualifiers: URI type: acute nasopharyngitis (common cold) Qualified Code(s): J00 - Acute nasopharyngitis [common cold] Patient Disposition: Home Condition: Stable Instructions: Upper Respiratory Infection (ED) Additional Instructions: Your rapid strep swab was negative today at [facility]. A throat culture will be sent to the laboratory for further testing. If the test is positive, you will receive a phone call within 48 hours and an appropriate antibiotic will be initiated at that time. Your symptoms are likely due to a viral illness, which is not treated with antibiotics. Viral symptoms can be present for up to a few weeks. -For pain/fever, you may take: Tylenol 650-1000mg by mouth every 4-6 hours. Do not exceed 4000mg in 24 hours. Advil (Ibuprofen) 600 mg by mouth every 6 hours. Do not exceed 2400mg in 24 hours. 8 AM: Tylenol 11 AM: Ibuprofen 2 PM: Tylenol 5 PM: Ibuprofen 8 PM: Tylenol 11 PM: Ibuprofen 2 AM: Tylenol 5 AM: Ibuprofen -Antihistamine medication such as Benadryl/Zyrtec at night and Claritin/Massiel during the day can help improve symptoms. -Use Flonase twice a day for 5 days then daily to help reduce the inflammation and dry up your sinuses. -You can also use Sudafed behind the pharmacy counter(12 or 24 hour). Be sure to drink plenty of water with these medications at least 8 ounces with every dose and it is important to drink 8 to 10 glasses of water per day. Water is a natural decongestant -Eat and drink things that are easy to swallow, like tea or soup, or popsicles. -Oral rinses such as: Salt water gargles and/or may use topical anesthetic (eg. Chloraseptic spray) or lozenges to relieve dryness or throat pain). -Frequent hand washing or hand internal medicine nurse practitioner is one of the best ways to prevent spread of infection. -Using a vaporizer or humidifier at night will also help thin secretions and help with coughing up phlegm. Call your Primary Care Doctor and make a follow-up appointment in 3 days. If your cough worsens, you develop a fever greater than 103, you develop shaking chills, a fast heartbeat, trouble breathing and/or feel you are are breathing much faster than usual, call your Primary Care Doctor or go to the ER. Patient Language: Irish Prescriptions: No Action loratadine [Claritin] .ROUTE multivitamin Tablet 1 tablet PO DAILY calcium carbonate-vitamin D3 [Caltrate with Vitamin D3] 600 mg-20 mcg (800 unit) Tablet 1 tablet PO DAILY Follow-up/Referrals: Denise Bell DO [Primary Care Provider] - 3 Days Time of Disposition: 17:58
[2024-12-17 16:43] VITALS: BP 124/69; PULSE 88; RESP 16; TEMP 36.7; O2SAT 99
[2024-12-17 16:51] LABS: EDSTREPNEGPOS1 Negative (Negative)
== END 2024-12-17 18:13 | disposition home or self-care (01) ==
PROVIDERS: Emergency Provider Nurse Practitioner Family; PCP Family Medicine
DX: J00 Acute nasopharyngitis [common cold] (principal); F12.90 Cannabis use, unspecified, uncomplicated; K21.9 Gastro-esophageal reflux disease without esophagitis; Z86.73 Personal history of transient ischemic attack (TIA), and cerebral infarction without residual deficits; Z90.711 Acquired absence of uterus with remaining cervical stump; Z85.828 Personal history of other malignant neoplasm of skin
CPT/HCPCS: 87081; 87880; 99213; G0463

== ENCOUNTER 2025-01-29 07:20 | Outpatient (CLI) | payer MEDICARE, SELFPAY ==
--- OUTSIDE RECORDS SUMMARY | 2025-01-29 07:27 | XMS_ITS | Clinical Summary ---
Author Organization [facility] Address [address] [place] [address] Care Team Providers Care Lbd Teacher Name Role Phone Rigoberto Pierre MD Primary Care Provider [phone] Source Comments [facility],non-owned Affiliates and Associated Physician Practices is amultiple site organization consisting of ambulatory clinics and hospital sitesin [place], [place], [place] and [place]. This disclosure is being madepursuant to the Care Everywhere program and may not contain all information available regarding this patient. Last updated 18.[facility] Allergies No known active allergies Medications * [...] on file Legal Sex Female 8:45 AM ACCOUNT LIAISON Gender Identity Not on file Sexual Orientation Not on file Last Filed Vital Signs Vital Sign Reading Time Taken Comments Blood Pressure 116/79 06/07/2010 4:05 PM ACCOUNT LIAISON Pulse 74 06/07/2010 4:05 PM ACCOUNT LIAISON Temperature 36.2 C (97.1 F) 06/07/2010 12:15 PM ACCOUNT LIAISON Respiratory Rate 16 06/07/2010 4:05 PM ACCOUNT LIAISON Oxygen Saturation 99% 06/07/2010 4:05 PM ACCOUNT LIAISON Inhaled Oxygen Concentration - - Weight 70.8 kg (156 lb) 06/07/2010 7:00 AM ACCOUNT LIAISON Height 172.7 cm (5' 8) 06/07/2010 7:00 AM ACCOUNT LIAISON Body Mass Index 23.72 06/07/2010 7:00 AM ACCOUNT LIAISON Plan of Treatment Health Maintenance Due Date [...] MAMMOGRAM 1960 MEDICARE AWV 12 MONTHS 1959 HEPATITIS C SCREENING 01/05/1977 DTAP/TDAP/TD VACCINES (1 - Tdap) 1978 PNEUMOCOCCAL VACCINE 50+ (1 of 1 - PCV) 2009 ZOSTER VACCINE (1 of 2) 2009 DEPRESSION SCREENING 05/13/2024 COVID-19 VACCINE (2023-2 5 season) 2025 INFLUENZA VACCINE (#1) 2025 Respiratory Syncytial Virus (RSV) Vaccine Pt: [...] on patient's age to complete this topic Insurance [facility] [place] [address] MEDICARE MEDICARE SUPPLEMENT PAYOR GENERIC SELF PAY NO INSURANCE Member Subscriber Plan / Payer (Ef fective for All Dates) Name:Desi Stuart Josefina Member ID:Not on file Relation to Subscriber:Not on file Name:NARCISODESI Josefina Subscriber ID:Not on file (Home) Address: [address] [place] [address] Payer ID:Not on file Group ID:Not on file Type:Self Pay Address: [place], [place] Advance Directives * Full Code (Latest Code Status on File) Date Activated Date Inactivated Comments 10/05/2009 2:43 PM 10/07/2009 2:03 AM Care Teams Lbd Teacher Relationship Specialty Start Date End Date Rigoberto Pierre MD [address] [place] [id number] PCP - General 06/03/19
--- OUTSIDE RECORDS SUMMARY | 2025-01-29 07:27 | XMS_ITS | Encounter Summary ---
Author Organization [facility] Address [address] [place] [address] Care Team Providers Care Veneer Splicer Name Role Phone Rigoberto Pierre MD Primary Care Provider [phone] Encounter Details Date Type Department Care Team (Late st Contact Info) Description 08/23/[address] [facility] [address] [place] [id number] Matias Ortega MD [address] [place] [address] Social History Tobacco Use Types Packs/Day Years Used Date Smoking Tobacco: Former Cigarettes Alcohol Use Standard Drinks/Week Comments Yes 0 (1 standard drink = 0.6 oz pur e alcohol) OCCASIONAL Comments No Sex and Gender Information Value Date Recorded Sex Assigned at Not on file Legal Sex Female 8:45 AM APPLICATION CONSULTANT Gender Identity Not on file Sexual Orientation Not on file documented as of this encounter Plan of Treatment Not on file documented as of this encounter Procedures Procedure Name Priority Date/Time Associated Diagnosis Comments DERMATOPATHOLOGY Routine 08/22/2021 12:0 0 AM CDT documented in this encounter Results * DERMATOPATHOLOGY (08/22/2021 12:00 AM CDT) Case Report Dermatopathology Report Case: [id number] Authorizing Provider: Matias Ortega MD Collected: 08/22/2021 12:00 AM Ordering Location: [facility] Lab Received: 08/23/2021 04:48 PM Pathologist: Linnea Duarte MD Specimen: Skin, right chest 2 3:25 PM CDT DERMATOPATHOLOGY LABORATORY Final Diagnosis Specimen A. SKIN, right chest: SQUAMOUS PROLIFERATION (D48.5) (see microscopic description and comment) 2 3:25 PM CDT DERMATOPATHOLOGY LABORATORY at 1525 CDT Clinical History ISK vs. AK vs. BCCA vs. SCCA Path# [id number] 2 3:25 PM CDT DERMATOPATHOLOGY LABORATORY Gross Description Specimen A: Received is one formalin filled container labeled with the patient's name and designated right chest. The specimen consists of a shave biopsy measuring [id number]. Jar 0. 3:25 PM CDT DERMATOPATHOLOGY LABORATORY Microscopic Description Specimen A. SKIN, [...] likely squamous cell carcinoma. 2 3:25 PM CDT DERMATOPATHOLOGY LABORATORY Disclaimer An external and internal positive and negative controls are appropriate for the histochemical, immunohistochemical and immunofluorescence stain(s) in this case (if any), except where stated explicitly. The performance characteristics of the stain(s) cited in this report were developed and its performance characteristic determined by the Dermatopathology Laboratory at [facility], directed by Dr. Tennille Fitzgerald. These tests need not be, and therefore are not, approved by the [place] Food and Drug Administration. The tests are used for clinical purposes. Billing Codes Specimen Charges Stain Charges 50042 1 2 3:25 PM CDT DERMATOPATHOLOGY LABORATORY Embedded Images 2 3:25 PM CDT DERMATOPATHOLOGY LABORATORY Pathology/Cytolog y TISSUE SPECIMEN FROM SKIN / Unknown 08/22/2021 08/23/2021 4:48 PM CDT us Matias Ortega MD LAB - PATHOLOGY/CYTOLOGY ORDER KING Final Result DERMATOPATHOLOGY LABORATORY [facility] - Department of Dermatology [facility] [address] [place] [address], [address] [phone] documented in this encounter Visit Diagnoses Not on filedocumented in this encounter Care Teams Veneer Splicer Relationship Specialty Start Date End Date Rigoberto Pierre MD [address] [place] [id number] PCP - General 06/03/19 documented as of this encounter
[2025-01-29 08:08] LABS: Hematocrit 43.3 % (37.0-47.0); Hemoglobin 14.6 g/dL (12.0-15.0); Immature Granulocyte Percent A 0.5 % (0-0.5); Lymphocytes Absolute Auto 1.66 K/mm3 (0.9-3.2); Mean Corpuscular HGB Conc 33.7 g/dl (32-36); Mean Corpuscular Hemoglobin 33.0 pg (26-34); Mean Corpuscular Volume 98.0 fl (80-100); Nucleated Red Blood Cells Absolute Auto 0.000 K/mm3 (0.0-0.012); Nucleated Red Blood Cells Perc 0.0 % (0.0-0.2); Platelet Count Result 225 k/mm3 (150-375); Red Blood Count 4.42 M/mm3 (4.2-5.4); White Blood Count 6.2 K/mm3 (4.5-10.0)
[2025-01-29 08:35] LABS: Alanine Aminotransferase 56 U/L (6-35); Albumin Level 4.5 g/dL (3.5-5.1); Alkaline Phosphatase 89 U/L (38-126); Anion Gap 7 mmol/L (4-12); Aspartate Amino Transferase 74 U/L (14-36); Bilirubin,Total 2.0 mg/dL (0.2-1.3); Blood Urea Nitrogen 16 mg/dL (7-17); Calcium 9.9 mg/dL (8.4-10.2); Carbon Dioxide 27 mmol/L (22-30); Chloride 105 mmol/L (98-107); Estimated Glomerular Filt Rate > 60; Glucose 103 mg/dL (65-110); Potassium 4.7 mmol/L (3.4-5.0); Sodium 139 mmol/L (137-145); Total Protein 7.3 g/dL (6.3-8.2)
[2025-01-29 09:47] LABS: Vitamin B12 616.0 pg/mL (239-931)
[2025-02-02 14:08] LABS: ANA by IFA Rfx Titer/Pattern Negative (.)
== END 2025-01-29 07:21 | disposition home or self-care (01) ==
PROVIDERS: PCP Nurse Practitioner Family; Visit Provider Psychiatry & Neurology Neurology
DX: M54.17 Radiculopathy, lumbosacral region (principal); G31.84 Mild cognitive impairment of uncertain or unknown etiology
CPT/HCPCS: 36415; 80053; 82306; 82607; 82746; 85025; 86038; 86430

== ENCOUNTER 2025-02-04 12:27 | Outpatient (CLI) | payer MEDICARE, SELFPAY ==
--- NOTE | ~2025-02-04 | MR_ITS ---
EXAMINATION: MR brain/brain stem wo/w con DATE: 02/04/2025 13:36 INDICATION: Trigeminal neuralgia. TECHNIQUE: Magnetic resonance imaging (MRI) of the brain and brainstem was performed without and with 12 mL MultiHance intravenous contrast. COMPARISON: None. 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 There are scattered areas of nonspecific increased T2-weighted signal intensity in the cerebral white matter, which is within normal limits for the patient's age. There is no intracranial hemorrhage, acute infarction, or abnormal intracranial mass lesion. The ventricles are normal in size. The trigeminal nerves are normal. The orbits are normal. The paranasal sinuses are clear. The mastoid air cells are normal. IMPRESSION: 1. Normal trigeminal nerves. No vascular loop compression. Reviewed, dictated and finalized at location E.
--- NOTE | ~2025-02-04 | MR_ITS ---
EXAMINATION: MR lumbar spine wo con DATE: 02/04/2025 13:07 INDICATION: Radiculopathy, lumbosacral region. TECHNIQUE: Magnetic resonance imaging (MRI) of the lumbar spine was performed without intravenous contrast. Sequences included sagittal T2-weighted FSE, sagittal T2-weighted FS FSE, sagittal T1-weighted FSE, and axial T2-weighted FSE. COMPARISON: None FINDINGS: There is 4 degrees levocurvature of lumbar spine. Vertebral body heights are normal. Intervertebral disc heights are normal. The distal spinal cord signal intensity is normal. The conus medullaris is at L1. The following disc levels are specifically discussed: L1-L2: The disc does not extend beyond the endplate margin. There is mild bilateral facet joint osteoarthritis. There is no neural foraminal stenosis. There is no central canal stenosis. L2-L3: The disc is bulging. There is moderate right and severe left facet joint osteoarthritis. There is mild bilateral neural foraminal stenosis. There is mild central canal stenosis. L3-L4: The disc is bulging. There is moderate bilateral facet joint osteoarthritis. There is mild bilateral neural foraminal stenosis. There is mild central canal stenosis. L4-L5: The disc is bulging. There is severe bilateral facet joint osteoarthritis. There is mild bilateral neural foraminal stenosis. There is mild central canal stenosis. L5-S1: The disc is bulging. There is severe bilateral facet joint osteoarthritis. There is mild bilateral neural foraminal stenosis. There is mild central canal stenosis. IMPRESSION: 1. Mild lumbar spondylosis. Reviewed, dictated and finalized at location E. IMPRESSION: 1. Mild lumbar spondylosis.
== END 2025-02-04 12:28 | disposition home or self-care (01) ==
LOC: MICIMG 12:29
PROVIDERS: PCP Nurse Practitioner Family; Visit Provider Psychiatry & Neurology Neurology
DX: G50.0 Trigeminal neuralgia (principal); M47.26 Other spondylosis with radiculopathy, lumbar region
CPT/HCPCS: 70553; 72148; A9577

== ENCOUNTER 2025-03-13 07:11 | Outpatient (CLI) | payer MEDICARE, SELFPAY ==
[2025-03-13 08:20] LABS: Alanine Aminotransferase 20 U/L (6-35); Albumin Level 4.3 g/dL (3.5-5.1); Alkaline Phosphatase 75 U/L (38-126); Anion Gap 6 mmol/L (4-12); Aspartate Amino Transferase 28 U/L (14-36); Bilirubin,Total 1.9 mg/dL (0.2-1.3); Blood Urea Nitrogen 11 mg/dL (7-17); Calcium 9.7 mg/dL (8.4-10.2); Carbon Dioxide 27 mmol/L (22-30); Chloride 107 mmol/L (98-107); Estimated Glomerular Filt Rate > 60; Glucose 104 mg/dL (65-110); Potassium 4.3 mmol/L (3.4-5.0); Sodium 140 mmol/L (137-145); Total Protein 6.9 g/dL (6.3-8.2)
[2025-03-13 08:34] LABS: Free T4 Free Thyroxine 1.45 ng/dL (0.78-2.19)
[2025-03-13 08:36] LABS: Hemoglobin A1C 5.1 % (<5.7)
[2025-03-13 08:58] LABS: Thyroid Stimulating Hormone 1.860 uIU/mL (0.465-4.680)
== END 2025-03-13 07:12 | disposition home or self-care (01) ==
PROVIDERS: PCP Family Medicine; Referring Provider Psychiatry & Neurology Neurology; Visit Provider Family Medicine
DX: R74.8 Abnormal levels of other serum enzymes (principal); R41.9 Unspecified symptoms and signs involving cognitive functions and awareness; R73.9 Hyperglycemia, unspecified
CPT/HCPCS: 36415; 80053; 83036; 84439; 84443